=== PATIENT | male | born 1945 | race Two or more races ===

== ENCOUNTER 2024-10-08 13:40 | Outpatient (CLI) | payer OTHER ==
[~2024-10-08 13:40] MED LIST: CHLORTHALIDONE25 MG; PAXIL20 MG; TRIAZOLAM0.25 MG; ZESTRIL20 MG; ZOCOR20 MG
== END 2024-10-08 13:44 | disposition home or self-care (01) ==
LOC: RAD 13:40
DX: Z01.818 Encounter for other preprocedural examination (principal)